=== PATIENT | male | born 1970 | race Caucasian/White ===

== ENCOUNTER 2017-02-08 16:00 | Emergency (ER) | payer OTHER ==
[2017-02-08 16:13] VITALS: O2SAT 97
[2017-02-08] MEDS ORDERED: BACIGUENT PACKET TP ONE (16:29)
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
[2017-02-08] MEDS ORDERED: BACIGUENT PACKET ONE (16:44)
[2017-02-08 16:49] LABS: Collection Type CLEAN CATCH
[2017-02-08 16:50] LABS: COMPLETE URINE MICROSCOPIC? NO
[2017-02-08 17:07] VITALS: BP 134/88; PULSE 54
--- NOTE | 2017-02-08 22:07 | XRAY ---
Indication: Thumb pain following injury. Comparison: None 3 views of the left hand demonstrates tiny soft tissue foreign body in the distal fifth finger. No other bony, articular, or soft tissue abnormalities.
== END 2017-02-08 17:10 | disposition home or self-care (01) ==
LOC: ED 16:00
DX: R55 Syncope and collapse (principal); S60.012A Contusion of left thumb without damage to nail, initial encounter; R00.1 Bradycardia, unspecified; W22.8XXA Striking against or struck by other objects, initial encounter
CPT/HCPCS: 73130; 81002; 82962; 93005; 93041; 99283; 99284

== ENCOUNTER 2017-03-02 05:41 | Emergency (ER) | payer OTHER ==
[2017-03-02] MEDS ORDERED: SODIUM SULAMYD EYE DROPS 15 ML OP ONE (05:53)
[2017-03-02] MEDS ORDERED: Eye-Stream Solution OP ONE (05:53)
[2017-03-02] MEDS ORDERED: Acular OPTH SOL OP ONE (05:53)
[2017-03-02] MEDS ORDERED: Fluor-I-Strip/Ful-Flo OP ONE ×2 (05:53→06:02)
[2017-03-02] MEDS ORDERED: TETRACAINE 0.5% STERI-UNIT SOL OP STA (05:53)
[2017-03-02 05:59] VITALS: O2SAT 98
[2017-03-02] MEDS ORDERED: TETRACAINE 0.5% STERI-UNIT SOL OP ONE (06:01)
[2017-03-02] MEDS ORDERED: Eye-Stream Solution ONE (06:02)
--- NOTE | 2017-03-02 06:06 | ERPHSYRPT ---
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 Allergies/Adverse Reactions: Penicillins Allergy (Mild, Verified 03/02/17 05:59) Home Medications: No Home Meds 1 ea UD 02/08/17 [History] Hx Tetanus, Diphtheria Vaccination/Date Given: Yes Hx Influenza Vaccination/Date Given: No Hx Pneumococcal Vaccination/Date Given: No - Review of Systems Eyes: Eye Redness, Foreign Body Sensation All Other Systems: Reviewed and Negative - Past Medical History Pertinent Past Medical History: No Neurological History: No Pertinent History ENT History: No Pertinent History Cardiac History: No Pertinent History Respiratory History: No Pertinent History Endocrine Medical History: No Pertinent History Musculoskeletal History: Fractures GI Medical History: No Pertinent History History: Other Psycho-Social History: No Pertinent History Male Reproductive Disorders: No Pertinent History Other Medical History: Right wrist fx 20yrs, kidney stones - Past Surgical History Past Surgical History: Yes Neuro Surgical History: No Pertinent History Cardiac: No Pertinent History Respiratory: No Pertinent History Gastrointestinal: No Pertinent History Genitourinary: No Pertinent History Musculoskeletal: No Pertinent History Male Surgical History: No Pertinent History Other Surgical History: Cyst removed from chest at age 17 - Social History Smoking Status: Never smoker Exposure to second hand smoke: No Drug Use: none Patient Lives Alone: No Significant Family History: kidney stones (brother) - Nursing Vital Signs Nursing Vital Signs: Initial Vital Signs Temperature 98.3 F Temperature Source Oral Pulse Rate 68 Respiratory Rate 16 Blood Pressure [Right Arm] 120/74 Pain Intensity 1 - Physical Exam General Appearance: alert Vision Acuity Right Eye: 20/15 Vision Acuity Left Eye: 20/10 Eye Exam: right eye: conjunctival inflammation, other (NO F.B. SEEN IN RIGHT EYE ; NO CORNEAL ABRASION SEEN IN RIGHT EYE UPON FLOURESCEIN STAINING OF THE RIGHT EYE.), bilateral eye: PERRL, EOMI Ears, Nose, Throat Exam: TMs normal, pharynx normal, moist mucous membranes Neck Exam: normal inspection Respiratory Exam: lungs clear Cardiovascular Exam: normal heart sounds Gastrointestinal Exam: normal bowel sounds Neurologic: alert, cooperative Skin Exam: warm, dry SpO2 Interpretation: normal SpO2: 98 Oxygen Delivery: Room Air - Course Nursing assessment & vital signs reviewed: Yes Ordered Tests: Active Orders 24 hr Category Date Time Status Visual Acuity STAT Care 03/02/17 05:53 Active Medication Summary Discontinued Medications Generic Name Dose Route Start Last Admin Trade Name Sarah PRN Reason Stop Dose Admin Eye Irrigation Solution 15 ml 03/02/17 05:53 Eye-Stream Solution OP 03/02/17 05:54 STAT ONE Eye Irrigation Solution Confirm 03/02/17 06:02 Eye-Stream Solution Administered 03/02/17 06:03 Dose 30 ml .ROUTE .STK-MED ONE Fluorescein Sodium 1 mg 03/02/17 05:53 03/02/17 06:10 Mnjgv-J-Zwive/Ful-Vinay OP 03/02/17 05:54 1 mg STAT ONE Administration Fluorescein Sodium Confirm 03/02/17 06:02 Qzler-Y-Wscqv/Ful-Vinay Administered 03/02/17 06:03 Dose 1 mg OP .STK-MED ONE Ketorolac Tromethamine 5 ml 03/02/17 05:53 Acular Opth Briana OP 03/02/17 05:54 STAT ONE Sulfacetamide Sodium 15 ml 03/02/17 05:53 Sodium Sulamyd Eye Drops 15 Ml OP 03/02/17 05:54 STAT ONE Tetracaine HCl 4 ml 03/02/17 05:53 03/02/17 06:03 Tetracaine 0.5% Steri-Unit Briana OP 03/02/17 05:54 4 ml STAT STA Administration Tetracaine HCl Confirm 03/02/17 06:01 Tetracaine 0.5% Steri-Unit Briana Administered 03/02/17 06:02 Dose 4 ml OP .STK-MED ONE - Departure Time of Disposition: 06:29 Departure Disposition: Home Clinical Impression: CONJUNCTIVITIS OF RIGHT EYE Condition: Fair Critical Care Time: No Referrals: HAKEEM ALVAREZ [Primary Care Provider] - Instructions: Conjunctivitis Additional Instructions: FOLLOW UP WITH PRIVATE DOCTOR/EYE DOCTOR TOMORROW. PLACE 2 DROPS OF SULFACETAMIDE OPHTHALMIC IN RIGHT EYE THREE TIMES EACH DAY FOR THE NEXT [address] 1 DROP OF ACULAR OPHTHALMIC IN RIGHT EYE EVERY 4 HOURS NEEDED FOR PAIN.
[2017-03-02 06:52] VITALS: BP 140/78; PULSE 80
== END 2017-03-02 06:52 | disposition home or self-care (01) ==
LOC: ED 05:41
DX: H10.9 Unspecified conjunctivitis (principal)
CPT/HCPCS: 99283; A9270-GY

== ENCOUNTER 2017-09-02 16:27 | Emergency (ER) | payer OTHER ==
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
[2017-09-02 18:56] VITALS: BP 132/84; PULSE 56; O2SAT 98
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
== END 2017-09-02 19:25 | disposition home or self-care (01) ==
LOC: ED 16:27
DX: M25.511 Pain in right shoulder (principal); V29.88XD Motorcycle rider (driver) (passenger) injured in other specified transport accidents, subsequent encounter
CPT/HCPCS: 73030; 73200; 99283; 99284

== ENCOUNTER 2018-05-29 23:37 | Emergency (ER) | payer OTHER ==
[2018-05-30 00:15] VITALS: BP 145/91; O2SAT 97
[2018-05-30] MEDS ORDERED: TETRACAINE 0.5% STERI-UNIT SOL OP STA (00:21)
--- NOTE | 2018-05-30 00:21 | ERPHSYRPT ---
- History of Present Illness Time Seen by Provider: 05/30/18 00:19 Source: patient, family Exam Limitations: no limitations Patient Subjective Stated Complaint: pt is alert and oriented. pt is ambulatory with steady gait. pt has c/o foreign body in his right eye after working on a truck. pt has 20/20 vision in both eyes, 20/20 with left eye, 20/30 in right eye. pt has some mild redness in his right eye. no drainage. 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 He tried flushing the foreign body out of his eye without results. He has had problems like this before as an occupational hazard. He does not have any vision problems. He does not wear glasses. He was wearing safety goggles most of the day but thinks something may have brushed into his eye when he had his goggles off. His last tetanus vaccination was 2 years ago. His past medical history is unremarkable. Timing/Duration: today Location: right eye Severity: mild Apparent Injury: possibly Associated Symptoms: foreign body sensation Visual Assistive Devices: None Allergies/Adverse Reactions: Penicillins Allergy (Mild, Verified 09/02/17 17:01) Home Medications: No Home Meds [No Home Meds] 1 [facility] UD 02/08/17 [History] Hx Tetanus, Diphtheria Vaccination/Date Given: Yes (2015) Hx Influenza Vaccination/Date Given: No Hx Pneumococcal Vaccination/Date Given: No Immunizations Up to Date: Yes - Review of Systems Constitutional: No Fever, No Chills Eyes: Foreign Body Sensation Ears, Nose, & Throat: No Symptoms Respiratory: No Cough, No Dyspnea Cardiac: No Chest Pain, No Edema, No Syncope Abdominal/Gastrointestinal: No Abdominal Pain, No Nausea, No Vomiting, No Diarrhea Genitourinary Symptoms: No Dysuria Musculoskeletal: No Back Pain, No Neck Pain Skin: No Rash Neurological: No Dizziness, No Focal Weakness, No Sensory Changes Psychological: No Symptoms Endocrine: No Symptoms Hematologic/Lymphatic: No Symptoms Immunological/Allergic: No Symptoms All Other Systems: Reviewed and Negative - Past Medical History Pertinent Past Medical History: No Neurological History: No Pertinent History ENT History: No Pertinent History Cardiac History: No Pertinent History Respiratory History: No Pertinent History Endocrine Medical History: No Pertinent History Musculoskeletal History: Fractures GI Medical History: No Pertinent History History: Other Psycho-Social History: No Pertinent History Male Reproductive Disorders: No Pertinent History Other Medical History: Right wrist fx 20yrs, kidney stones - Past Surgical History Past Surgical History: Yes Neuro Surgical History: No Pertinent History Cardiac: No Pertinent History Respiratory: No Pertinent History Gastrointestinal: No Pertinent History Genitourinary: No Pertinent History Musculoskeletal: No Pertinent History Male Surgical History: No Pertinent History Other Surgical History: Cyst removed from chest at age 17 - Social History Smoking Status: Never smoker Exposure to second hand smoke: No Drug Use: none Patient Lives Alone: No Significant Family History: kidney stones (brother) - Nursing Vital Signs Nursing Vital Signs: Initial Vital Signs Temperature 98.6 F 05/29/18 23:38 Pulse Rate 69 05/29/18 23:38 Respiratory Rate 74 H 05/29/18 23:38 Blood Pressure 145/91 05/29/18 23:38 O2 Sat by Pulse Oximetry 97 05/29/18 23:38 Pain Scale Pain Intensity 0 - Physical Exam General Appearance: no apparent distress Ears, Nose, Throat Exam: normal ENT inspection Neck Exam: normal inspection Respiratory Exam: normal breath sounds Cardiovascular Exam: regular rate/rhythm Gastrointestinal Exam: soft Extremity Exam: normal inspection Neurologic: alert Skin Exam: normal color SpO2 Interpretation: normal SpO2: 97 Oxygen Delivery: Room Air Procedures - Eye Procedure Tetracaine Drops Administered: Yes Eye FB Removal: other Antibiotic Oinment/Drps Admin: right eye Ordered Tests: Active Orders 24 hr Category Date Time Status Visual Acuity STAT Care 05/30/18 00:21 Active Medication Summary Discontinued Medications Generic Name Dose Route Start Last Admin Trade Name Freq PRN Reason Stop Dose Admin Tetracaine HCl 4 ml 05/30/18 00:21 05/30/18 00:24 Tetracaine 0.5% Steri-Unit Briana OP 05/30/18 00:22 4 ml STAT STA Administration Tetracaine HCl Confirm 05/30/18 00:24 Tetracaine 0.5% Steri-Unit Briana Administered 05/30/18 00:25 Dose 4 ml OP .STK-MED ONE - Progress Progress: improved Progress Note: 05/30/18 00:43 Tetracaine was used to anesthetize the right eye. Observation of the right eye found a tiny area in the central cornea that was mildly hazy that apparently was a spot where the foreign body had been lodged previously. No obvious foreign body was found anywhere in the right eye at this time. After telling the patient that I could not find any foreign body, the patient stated that he noticed that it felt like the foreign body had gone away when he was in the waiting room. Counseled pt/family regarding: diagnosis - Departure Time of Disposition: 00:44 Departure Disposition: Home Clinical Impression: Foreign body of right eye Condition: Stable Critical Care Time: No Referrals: HAKEEM ALVAREZ [Primary Care Provider] - Additional Instructions: You had an apparent foreign body that had already become dislodged before being seen in the ER. I found a small hazy area in the central cornea with a foreign body had been attached. Use gentamicin ointment a half-inch ribbon in the right eye 2 times a day for one week. Take Tylenol and ibuprofen as needed for discomfort. If the condition reappears, please follow-up with an train system operator.
[2018-05-30] MEDS ORDERED: TETRACAINE 0.5% STERI-UNIT SOL OP ONE (00:24)
[2018-05-30] MEDS ORDERED: [UNRECOGNIZED DRUG - OTHER] OP ONE (00:43)
[2018-05-30 00:57] VITALS: PULSE 72
[2018-05-30] MEDS ORDERED: [UNRECOGNIZED DRUG - OTHER] OP SCH (10:00)
== END 2018-05-30 00:55 | disposition home or self-care (01) ==
LOC: ED 23:37
DX: T15.01XA Foreign body in cornea, right eye, initial encounter (principal)
CPT/HCPCS: 99283; A9270-GY

== ENCOUNTER 2024-04-18 21:15 | Emergency (ER) | payer SELFPAY ==
[2024-04-18 21:38] VITALS: TEMP 96.7
--- NOTE | 2024-04-18 21:59 | ERPHSYRPT ---
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 Last tetanus is unknown. Allergies/Adverse Reactions: Penicillins Allergy (Mild, Verified 09/02/17 17:01) cat dander Allergy (Verified 04/18/24 21:22) Home Medications: No Reportable Medications [No Reported Medications] 04/18/24 [History] Hx Tetanus, Diphtheria Vaccination/Date Given: Yes (2015) Hx Influenza Vaccination/Date Given: No Hx Pneumococcal Vaccination/Date Given: No Immunizations Up to Date: No Travel Risk - International Travel Have you traveled outside of the country in past 3 weeks: No - Emerging Infectious Disease Are you exhibiting symptoms associated with any current EIDs: No - Review of Systems Musculoskeletal: Injury (right little finger) - Past Medical History Pertinent Past Medical History: No Neurological History: No Pertinent History ENT History: No Pertinent History Cardiac History: No Pertinent History Respiratory History: No Pertinent History Endocrine Medical History: No Pertinent History Musculoskeletal History: Fractures GI Medical History: No Pertinent History History: Other Psycho-Social History: No Pertinent History Male Reproductive Disorders: No Pertinent History Other Medical History: Right wrist fx 20yrs, kidney stones - Past Surgical History Past Surgical History: Yes Neuro Surgical History: No Pertinent History Cardiac: No Pertinent History Respiratory: No Pertinent History Gastrointestinal: No Pertinent History Genitourinary: No Pertinent History Musculoskeletal: No Pertinent History Male Surgical History: No Pertinent History Other Surgical History: Cyst removed from chest at age 17 Significant Family History: kidney stones (brother) - Social History Smoking Status: Never smoker Exposure to second hand smoke: No Drug Use: none Patient Lives Alone: No - Nursing Vital Signs Nursing Vital Signs: Initial Vital Signs Temperature 96.7 F 04/18/24 21:24 Pulse Rate 55 L 04/18/24 21:24 Respiratory Rate 16 04/18/24 21:24 Blood Pressure 164/89 04/18/24 21:24 O2 Sat by Pulse Oximetry 99 04/18/24 21:24 Pain Scale Pain Intensity 0 - Physical Exam General Appearance: alert Shoulder Exam: normal ROM Elbow/Forearm Exam: normal ROM Wrist Exam: normal ROM Hand Exam: laceration (avulsion of the distal aspect of the distal phalanx of the right little finger; good capillary refill & sensation.) Neuro/Tendon Exam: normal sensation, normal motor functions Mental Status Exam: alert, cooperative Skin Exam: No cyanosis SpO2 Interpretation: normal SpO2: 99 O2 Delivery: Room Air - Course Nursing assessment & vital signs reviewed: Yes - Radiology Exams Right Hand X-ray Interpretation: Teleradiologist Report (The tuft of the distal phalanx of the little/fifth finger of the right hand along with soft tissue is absent suggestive of partial amputation. Soft tissue swelling is noted at the lateral finger.) Ordered Tests: Active Orders 24 hr Category Date Time Status Wound Care STAT Care 04/18/24 22:46 Active FINGER(S) Stat Exams 04/18/24 21:30 Completed Medication Summary Discontinued Medications Generic Name Dose Route Start Last Admin Trade Name Freq PRN Reason Stop Dose Admin Hydrocodone Bitart/Acetaminophen 2 tab 04/18/24 22:07 04/18/24 22:21 Hydrocodone/Apap 5/325 1 Tab Tablet PO 04/18/24 22:08 2 tab STAT ONE Administration Hydrocodone Bitart/Acetaminophen Confirm 04/18/24 22:12 Hydrocodone/Apap 5/325 1 Tab Tablet Administered 04/18/24 22:13 Dose 2 tab .ROUTE .STK-MED ONE Clindamycin HCl 300 mg 04/18/24 22:06 04/18/24 22:21 Clindamycin Hcl 150 Mg Capsule PO 04/18/24 22:07 300 mg STAT ONE Administration Clindamycin HCl Confirm 04/18/24 22:12 Clindamycin Hcl 150 Mg Capsule Administered 04/18/24 22:13 Dose 300 mg .ROUTE .STK-MED ONE Diphtheria/Tetanus/Acell Pertussis 0.5 ml 04/18/24 22:07 04/18/24 22:22 Tdap --Diph,Pertuss(Acell),Tet Vac/Pf 0.5 Ml Vial IM 04/18/24 22:08 0.5 ml .ONCE ONE Administration Diphtheria/Tetanus/Acell Pertussis Confirm 04/18/24 22:13 Tdap --Diph,Pertuss(Acell),Tet Vac/Pf 0.5 Ml Vial Administered 04/18/24 22:14 Dose 0.5 ml IM .STK-MED ONE - Progress Progress: unchanged Discussed with DrPorter: Other (Spoke with Dr. 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
[2024-04-18] MEDS ORDERED: CLEOCIN 150 MG CAPSULE ONE (22:12)
[2024-04-18] MEDS ORDERED: NORCO 5/325 MG ONE (22:12)
[2024-04-18] MEDS ORDERED: Adacel Vial IM ONE (22:13)
[2024-04-18] MEDS: NORCO 5/325 MG PO ONE (22:21)
[2024-04-18] MEDS: CLEOCIN 150 MG CAPSULE PO ONE (22:21)
[2024-04-18] MEDS: Adacel Vial IM ONE (22:22)
--- NOTE | 2024-04-19 | XRAY ---
CLINICAL HISTORY: partial amputation COMPARISON: None. TECHNIQUE: X-ray examination of the right fifth finger was performed in 3 views: PA, lateral, and oblique views. FINDINGS: The tuft of the distal phalanx of the little/fifth finger of the right hand along with soft tissue is absent suggestive of partial amputation. Soft tissue swelling is noted at the lateral finger. No other acute bony abnormality. Bone density is normal. Bony island at the head of the proximal phalanx of the middle finger. IMPRESSION: The tuft of the distal phalanx of the little/fifth finger of the right hand along with soft tissue is absent suggestive of partial amputation. Soft tissue swelling is noted at the lateral finger. 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 Electronically Signed by: Ana Melton MD. (04/18/2024 23:55:09 EDT)
[2024-04-19 00:04] VITALS: BP 156/91; PULSE 69; RESP 16
[2024-04-19 00:10] VITALS: O2SAT 99
== END 2024-04-19 00:24 | disposition short-term general hospital (02) ==
LOC: ED 21:15
DX: S68.626A Partial traumatic transphalangeal amputation of right little finger, initial encounter (principal); W23.0XXA Caught, crushed, jammed, or pinched between moving objects, initial encounter; Y92.015 Private garage of single-family (private) house as the place of occurrence of the external cause
CPT/HCPCS: 73140; 90471; 90715; 99284; A9270-GY